=== PATIENT | male | born 1985 | race Caucasian/White ===

== ENCOUNTER 2017-03-24 19:10 | Emergency (ER) | payer BC ==
[~2017-03-24] VITALS: Ht 172.7 cm; Wt 62.6 kg
[~2017-03-24 19:10] MED LIST: OMEPRAZOLE20 MG PO
[2017-03-24] MEDS ORDERED: OMEPRAZOLE40 MG PO (19:19)
[2017-03-24] MEDS ORDERED: MECLIZINE HCL25 MG PO (21:17)
== END 2017-03-24 21:40 | disposition home or self-care (01) ==
LOC: ED 19:10
DX: H81.20 Vestibular neuronitis, unspecified ear (principal); K21.9 Gastro-esophageal reflux disease without esophagitis; Z79.899 Other long term (current) drug therapy
CPT/HCPCS: 80053; 85025; 96361; 96374; 99284; J2405; J7030

== ENCOUNTER 2017-04-05 22:41 | Emergency (ER) | payer BC ==
[~2017-04-05] VITALS: Ht 172.7 cm; Wt 61.2 kg
[~2017-04-05 22:41] MED LIST changes: +MECLIZINE HCL25 MG PO; +OMEPRAZOLE40 MG PO
[2017-04-05] MEDS ORDERED: PEPTO-BISM262 MG/15 PO (22:55)
--- NOTE | 2017-04-06 16:31 | EKG ---
[facility] [address] [facility] [place] [address] Signed Normal sinus rhythm Normal ECG No previous ECGs available Confirmed by GRACIE TADEO MD ([id number]) on 04/06/2017 4:30:49 PM Electronically Signed By: GRACIE TADEO MD 04/06/17 1631 PATIENT NAME: JEFF RAVI Electrocardiogram DATE OF : 87 PHYSICIAN: GRACIE TADEO MD REPORT #: [id number] REPORT IS CONFIDENTIAL AND NOT TO BE RELEASED WITHOUT AUTHORIZATION
== END 2017-04-06 00:30 | disposition home or self-care (01) ==
LOC: ED 22:41
DX: F45.8 Other somatoform disorders (principal); K21.9 Gastro-esophageal reflux disease without esophagitis; Z79.899 Other long term (current) drug therapy; Z98.890 Other specified postprocedural states
CPT/HCPCS: 93005; 93010; 96374; 99283; J2060

== ENCOUNTER 2019-07-21 11:12 | Day surgery (SDC) | payer BC ==
[~2019-07-21] VITALS: Ht 172.7 cm; Wt 61.2 kg
[~2019-07-21 11:12] MED LIST changes: +PEPTO-BISM262 MG/15 PO
--- NOTE | 2019-07-21 14:30 | NUR ---
07/21/19 1429 Larry Alexander 1425: PT ARRIVED TO PACU. PT MAINTAINING HIS OWN AIRWAY.
--- NOTE | 2019-07-22 21:07 | OR ---
[facility] [address] [place], [place] [address] Signed DATE OF OPERATION: 07/21/2019 SURGEON: Lluvia Martinez MD PREOPERATIVE DIAGNOSES: 1. Weight loss. 2. Epigastric pain. 3. Possible reflux symptoms. POSTOPERATIVE DIAGNOSES: 1. Normal-appearing esophagus. 2. Good appearing flap valve. 3. Stomach otherwise normal. PROCEDURE: Esophagogastroduodenoscopy with biopsy. ANESTHESIA: Intravenous sedation, fentanyl 100 mcg, Versed 4 mg. INDICATIONS: A 34-year-old white man, a patient of Dr. Lluvia Dumont, well known to me from the past. He has been treated for "reflux" symptoms in the past with PPI medication, which was generally helpful. In the past few months, he has had weight loss of up to 20 pounds, epigastric pain, and nonresponse to PPI medication. He has had no hematemesis and no dysphagia. He is admitted to undergo upper endoscopy to better characterize the problem. The patient had been interested in anti-reflux surgery if it were the cause of his symptoms. FINDINGS: To my surprise, the esophagus and GE junction looked quite normal actually. The esophagus was absolutely not pathologic. The flap valve was quite good. Retroflexed view did allow for effacement of it, but in general, it looked quite good. The stomach and duodenum were normal. CLOtest was negative 20 minutes post procedure. DESCRIPTION OF PROCEDURE: The patient was brought to the endoscopy suite, given topical Hurricaine spray hypopharyngeal anesthesia, and placed in lateral decubitus position, given intravenous sedation to the point of slurred speech and nystagmus. A bite block was placed. Electronically Signed By: LLUVIA MARTINEZ MD 07/22/19 2107 PATIENT NAME: JEFF RAVI OPERATIVE REPORT DATE OF : [birth year] REPORT #: [id number] PHYSICIAN: LLUVIA MARTINEZ MD PCP: AURY DUMONT MD REPORT IS CONFIDENTIAL AND NOT TO BE RELEASED WITHOUT AUTHORIZATION [facility] [address] [place], [place] [address] Signed The Olympus video upper endoscope was passed in the hypopharynx. The vocal cords were normal. Scope was advanced to the esophagus throughout its length, it was normal. Stomach was insufflated with air. Rugal folds were normal as was the pylorus. The scope was passed through the pylorus into the duodenum, which was normal. Biopsies were taken of the 3rd portion to assess for celiac disease. The scope was withdrawn and biopsies then taken of the antrum for both EMILIA and pathologic testing. Retroflexed view was undertaken showing surprisingly good flap valve. Various maneuvers were undertaken to efface it, ultimately withdrawing the scope in J position difficulty place the flap valve somewhat. This would not be considered pathologic. Biopsies have been taken from the antrum for both EMILIA and pathologic testing. The scope was positioned to the distal esophagus, which had absolutely normal mucosa. Biopsies were taken nevertheless. The scope was carefully withdrawn. There were no other findings. The patient was taken to recovery room in good condition. CONCLUDING DIAGNOSES: No lesion to support the idea this represents reflux problem. A video esophagram may better characterize a functional issue. I will review his pathology reports. We will see him back in two weeks in the office and consider for further evaluation. At present, anti-reflux surgery seems an unlikely benefit to him. MD CHASITY Mock/MODL /[id number] cc: Aury Dumont MD Copies: AURY DUMONT MD ~ Electronically Signed By: LLUVIA MARTINEZ MD 07/22/19 2107 PATIENT NAME: JEFF RAVI OPERATIVE REPORT DATE OF : 87 REPORT #: [id number] PHYSICIAN: LLUVIA MARTINEZ MD PCP: AURY DUMONT MD REPORT IS CONFIDENTIAL AND NOT TO BE RELEASED WITHOUT AUTHORIZATION
--- NOTE | 2019-07-22 21:07 | CONS ---
[facility] [address] [place], [place] [address] Signed DATE OF CONSULTATION: 07/21/2019 ADDENDUM: The patient underwent upper endoscopy today and was found to have no findings on esophagus, stomach, or duodenum that would account for his substernal pain. Postoperative discussion with his , who was not in attendance at his original appointment prior to the endoscopy described that he has very severe midsternal pain on a daily basis almost. This has been attributed to reflux. Given the paucity of findings on upper endoscopy consideration is made that this may represent esophageal spasm. The patient does not have a strong history of cardiac disease and is 34 years of age. He does not have exertional anginal chest pain according to the patient and verified by his . She notes that he is bothered quite markedly by "stress." On the basis of these findings, this may represent esophageal spasm, less likely coronary artery disease or cardiac disease of any sort. I have prescribed for him nitroglycerin 0.4 mg to be taken sublingually if an episode of this type should occur. He is advised as was his that he should be lying flat and taking the medication and be prepared for possible headache as a side effect. When I see him back in the next 2 weeks or so we will review his results with this in light of the findings (lack thereof) on upper endoscopy, as well as review his pathology reports. He may ultimately require cardiac evaluation despite his young age of 34 years. This would be up to the judgment of Dr. Dumont, his primary provider. MD CHASITY Mock/KAILA /[id number] cc: Aury Dumont MD Copies: AURY DUMONT MD Electronically Signed By: LLUVIA MARTINEZ MD 07/22/192106 PATIENT NAME: JEFF RAVI CONSULTATION DATE OF : [birth year] REPORT #: [id number] PHYSICIAN: LLUVIA MARTINEZ MD PCP: AURY DUMONT MD REPORT IS CONFIDENTIAL AND NOT TO BE RELEASED WITHOUT AUTHORIZATION [address] [address] Signed ~ Electronically Signed By: LLUVIA MARTINEZ MD 07/22/192106 PATIENT NAME: JEFF RAVI CONSULTATION DATE OF : [birth year] REPORT #: [id number] PHYSICIAN: LLUVIA MARTINEZ MD PCP: AURY DUMONT MD REPORT IS CONFIDENTIAL AND NOT TO BE RELEASED WITHOUT AUTHORIZATION
--- NOTE | 2019-07-25 14:28 | PATH ---
[facility] [address] [place], [place] [address] Signed SPECIMEN(S): A DUODENAL BIOPSY SPECIMEN(S): B DUODENAL BULB BIOPSY SPECIMEN(S): C ANTRUM BIOPSY SPECIMEN(S): D LOWER ESOPHAGEAL BIOPSY SPECIMEN SOURCE: A. DUODENAL BIOPSY B. DUODENAL BULB BIOPSY C. ANTRUM BIOPSY D. LOWER ESOPHAGEAL BIOPSY CLINICAL HISTORY: Epigastric pain. Post-op: Normal. MICROSCOPIC DESCRIPTION: Histologic sections of all submitted blocks are examined by light microscopy. These findings, together with the gross examination, support the pathologic diagnosis. FINAL PATHOLOGIC DIAGNOSIS: A. Duodenum, biopsy: - Duodenal mucosa with mild mucosal capillary congestion. - Negative for dysplasia or malignancy. B. Duodenal bulb, biopsy: - Duodenal mucosa with mild mucosal capillary congestion. - Negative for dysplasia or malignancy. C. Stomach, antrum, biopsy: - Antral mucosa with mild chronic, inactive gastritis. - Negative for Helicobacter organisms on HE stain. - Negative for dysplasia or malignancy. D. Esophagus, distal, biopsy: - Squamous mucosa with minimal reactive changes, suggestive of mild reflux esophagitis. - Negative for intestinal metaplasia, dysplasia, or malignancy. NAL:slh:C2NR GROSS DESCRIPTION: Four specimens are received in four containers, labeled "MARIFER." A. The specimen, labeled "1" and designated "duodenum biopsy" per requisition form, is received in formalin and consists of three dumont soft tissue fragments that measure 0.4 cm in greatest dimension. The specimen is entirely submitted in cassette (A1). PATIENT NAME: JEFF RAVI PATHOLOGY DATE OF : [birth year] REPORT #: [id number] PHYSICIAN: KAYLA ZARATE PCP: AURY BOCANEGRA MD REPORT IS CONFIDENTIAL AND NOT TO BE RELEASED WITHOUT AUTHORIZATION [facility] [address] [place], [place] [address] Signed B. The specimen, labeled "2" and designated "duodenum bulb biopsy" per requisition form, is received in formalin and consists of two dumont soft tissue fragments that measure up to 0.3 cm in greatest dimension. The specimen is entirely submitted in cassette (B1). C. The specimen, labeled "3" and designated "antrum/pylorus biopsy" per requisition form, is received in formalin and consists of a 0.5 x 0.4 x 0.2 cm dumont soft tissue fragment. The specimen is entirely submitted in cassette (C1). D. The specimen, labeled "4" and designated "lower esophagus biopsy" per requisition form, is received in formalin and consists of a 0.4 x 0.3 x 0.2 cm soft, dumont-white tissue fragment. The specimen is entirely submitted in cassette (D1). KM (under the direct supervision of a pathologist) The Gross Description was prepared using a voice recognition system. The report was reviewed for accuracy; however, sound-alike word errors, addition and/or deletions may occur. If there is any question about this report, please contact Client Services. PERFORMING LABORATORY: The technical component was performed by [facility], [address] [place] [id number] (Certified Credit Counselor: Suzie Beltrán MD; CLIA# [id number]). [facility], [address] [address] (CLIA# [id number]). Diagnostician: Michelle Luna MD Pathologist Electronically Signed 07/25/2019 Copies: ~ PATIENT NAME: JEFF RAVI ROXANNE PATHOLOGY DATE OF : [birth year] REPORT #: [id number] PHYSICIAN: KAYLA PATHOLOGY PCP: AURY BOCANEGRA MD REPORT IS CONFIDENTIAL AND NOT TO BE RELEASED WITHOUT AUTHORIZATION
== END 2019-07-21 15:15 | disposition home or self-care (01) ==
LOC: OPS 11:12 → DS 11:17 → OPS 12:30 → DS 12:30 → OPS 15:15
PROVIDERS: Surgery
PROC: 0DB78ZX Excision of Stomach, Pylorus, Via Natural or Artificial Opening Endoscopic, Diagnostic (ICD-10-PCS; 2019-07-21)
PROC: 0DB38ZX Excision of Lower Esophagus, Via Natural or Artificial Opening Endoscopic, Diagnostic (ICD-10-PCS; 2019-07-21)
PROC: 0DB98ZX Excision of Duodenum, Via Natural or Artificial Opening Endoscopic, Diagnostic (ICD-10-PCS; principal; 2019-07-21 12:30)
DX: K29.50 Unspecified chronic gastritis without bleeding (principal); R63.4 Abnormal weight loss
CPT/HCPCS: G0500; J2250; J3010; J7121

== ENCOUNTER 2024-02-09 13:12 | Emergency (ER) | payer OTHER ==
[~2024-02-09] VITALS: Ht 172.7 cm; Wt 67.6 kg
[~2024-02-09 13:12] MED LIST changes: +ACETAMINOPHEN500 MG PO; +MOTRIN IB200 MG PO; +OXYCODON-ACETA1 EAC2 PO; +TYLENOL325 MG PO; +ZZZQUIL25 MG PO
[2024-02-09] MEDS ORDERED: ACETAMINOPHEN 500 MG TAB PO ONE (14:30)
[2024-02-09] MEDS ORDERED: ondansetron HCL 4 MG/2 ML VIAL IV ONE (14:30)
[2024-02-09] MEDS ORDERED: ONDANSETRON ODT4 MG PO (15:33)
[2024-02-09 15:42] VITALS: BP 124/88
== END 2024-02-09 15:47 | disposition home or self-care (01) ==
LOC: ED 13:12
DX: S06.0X9A Concussion with loss of consciousness of unspecified duration, initial encounter (principal); S00.03XA Contusion of scalp, initial encounter; S00.83XA Contusion of other part of head, initial encounter; W18.30XA Fall on same level, unspecified, initial encounter
CPT/HCPCS: 70450; 72125; 96374; 99284-25; A9270; J2405